=== PATIENT | male | born 1940 | race African-American/Black ===

== ENCOUNTER 2022-04-19 08:04 | Outpatient (CLI) | payer MEDICARE, BC, SELFPAY ==
--- NOTE | ~2022-04-19 | PE_ITS ---
EXAMINATION: PET skull to mid thigh DATE: 04/19/2022 10:04 INDICATION: Lung nodule TECHNIQUE: Blood glucose level was 87 mg/dL. 9.155 mCi of 18-fluorodeoxyglucose (18-FDG) was administ ered i.v. Low dose computed tomography (CT) images were acquired from the base of the brain to the pr oximal thighs for attenuation correction and anatomic localization. Positron emission tomography (PET ) images were acquired in the same distribution beginning 56 minutes after injection. Images includin g fused PET/CT images were reconstructed in axial, coronal, and sagittal planes. Automated exposure c ontrol technique was employed. The dose-length product was 396.27mGy-cm. COMPARISON: None FINDINGS: Head/neck: There is symmetric increased activity in the oral cavity, palatine and lingual tonsils, parotid gland s, laryngeal muscles and ocular muscles without CT correlate, likely physiologic. Asymmetric mild inc reased uptake without radiologic correlate at the left longus capitis muscle which is likely physiolo gic. No pathologically enlarged cervical lymphadenopathy or suspicious foci of increased FDG uptake i n the visualized head or neck. Chest: Moderate emphysema. Mild discoid atelectasis in the right lower lobe. 4 mm nodule at the right apex a nd 2 mm right upper lobe nodule along the major fissure without evident associated FDG uptake. There is a small focus of minimal FDG uptake with maximal SUV of 1.8 associated with and ill-defined approx imately 9 x 8 mm opacity in the right middle lobe along the major fissure. Evaluation of the appearan ce in size of the lesion on CT is limited by respiratory motion artifact. No more discrete nodules we re more suspicious FDG avid lesions or pulmonary lesions. Heart size is normal. Atherosclerotic coron pipo artery calcification. No pericardial effusion. Thoracic aorta is normal in caliber. No pathologic ally enlarged or abnormally FDG avid thoracic lymphadenopathy. Abdomen/pelvis/proximal thighs: Physiologic renal accumulation and excretion of FDG activity in the kidneys, bladder and along portio ns of ureters. 5.4 cm exophytic cyst at the lateral left kidney. Normal degree and heterogenous patte rn of increased uptake throughout the liver without radiologic correlate or dominant FDG avid lesion. The gallbladder, pancreas, spleen and bilateral adrenal glands are normal. Mild uptake scattered thr oughout the bowels without radiologic correlate, also likely physiologic. No other abnormal foci of i ncreased FDG uptake or pathologically enlarged lymphadenopathy in the abdomen, pelvis or proximal thi ghs. Musculoskeletal: L4 hemangioma with thickened vertical trabecula and without abnormal FDG uptake. No suspicious lytic, blastic or FDG avid bone lesions. IMPRESSION: 1. Negligible FDG activity associated with an ill-defined 9 x 8 mm opacity in the right middle lobe a long the major fissure which while reassuring does not absolutely exclude a slowly growing malignancy such as bronchoalveolar carcinoma. CT assessment on the current study is limited by motion artifact. Follow-up recommendation should be based upon. Appearance/measurements on prior CT imaging utilizing either Fleischner or lung RADS criteria. 2. No other lesions suspicious for primary malignancy or metastatic disease. Reviewed, dictated and finalized at location A. [employer] IMPRESSION: 1. Negligible FDG activity associated with an ill-defined 9 x 8 mm opacity in t he right middle lobe along the major fissure which while reassuring does not ab solutely exclude a slowly growing malignancy such as bronchoalveolar carcinoma. CT assessment on the current study is limited by motion artifact. Follow-up re commendation should be based upon. Appearance/measurements on prior CT imaging utilizing
[2022-04-19 08:25] LABS: Glucose Point of Care 87 mg/dl (65-105)
== END 2022-04-19 08:05 | disposition home or self-care (01) ==
PROVIDERS: PCP Internal Medicine Infectious Disease; Visit Provider Internal Medicine Infectious Disease
DX: R91.1 Solitary pulmonary nodule (principal)
CPT/HCPCS: 78815; A9552

== ENCOUNTER 2022-07-07 11:47 | Outpatient (CLI) | payer MEDICARE, BC, SELFPAY ==
--- NOTE | ~2022-07-07 | PE_ITS ---
EXAMINATION: PET skull to mid thigh DATE: 07/07/2022 14:05 INDICATION: Solitary pulmonary nodule TECHNIQUE: Blood glucose level was 88 mg/dL. 11.055 mCi of 18-fluorodeoxyglucose (18-FDG) was adminis tered i.v. Low dose computed tomography (CT) images were acquired from the base of the brain to the p roximal thighs for attenuation correction and anatomic localization. Positron emission tomography (PE T) images were acquired in the same distribution beginning 50 minutes after injection. The dose-lengt h product (DLP) was 351.56 mGy-cm. COMPARISON: 04/19/2022 FINDINGS: Head/neck: FDG uptake in optic nerves, extraocular, oral cavity, and vocal cords without suspicious C T correlate is likely physiologic. There are no pathologically enlarged cervical lymph nodes. Chest: No abnormal FDG uptake is identified. The previously described nodular opacity of the right mi ddle lobe has resolved, consistent with resolved infection/inflammation. There is moderate emphysema. No suspicious pulmonary nodules are identified. No pleural effusion or pneumothorax. No pathological ly enlarged thoracic lymph nodes are identified. The heart size is normal. There is mild atelectasis. Calcified coronary artery atherosclerosis is noted. Abdomen/pelvis/proximal thighs: Physiologic FDG activity is present in the bowel and urinary tract. N o abnormal FDG uptake is identified. The liver, spleen, pancreas, gallbladder, and adrenal glands are normal. There is a 4.9 cm exophytic cyst of the left kidney. The right kidney is unremarkable. No pa thologically enlarged abdominal or pelvic lymph nodes are identified. No free intraperitoneal gas or evidence of bowel obstruction. There is calcified atherosclerosis of the aorta and many of the other arteries. Musculoskeletal: No abnormal FDG uptake is identified. IMPRESSION: 1. Interval resolution of the previously described right middle lobe nodule, consistent with infectio n/inflammation. No suspicious pulmonary nodules identified. Reviewed, dictated and finalized at location L. PPER IMPRESSION: 1. Interval resolution of the previously described right middle lobe nodule, co nsistent with infection/inflammation. No suspicious pulmonary nodules identifie d.
[2022-07-07 12:37] LABS: Glucose Point of Care 88 mg/dl (65-105)
== END 2022-07-07 11:48 | disposition home or self-care (01) ==
LOC: ANHIMG 11:55
PROVIDERS: PCP Internal Medicine Infectious Disease; Visit Provider Internal Medicine Pulmonary Disease
DX: R91.1 Solitary pulmonary nodule (principal)
CPT/HCPCS: 78815; A9552

== ENCOUNTER 2022-11-08 10:39 | Outpatient (CLI) | payer MEDICARE, BC, SELFPAY ==
--- NOTE | ~2022-11-08 | US_ITS ---
US retroperitoneal comp 11/08/2022 11:29 Procedure: Realtime transabdominal ultrasound of the kidneys and bladder. Indication: Chronic kidney disease stage III Comparison: No prior studies for comparison. Findings: Renal echotexture is normal bilaterally without hydronephrosis, contour deforming mass or r enal calculus. The right kidney measures 9.4 cm and left kidney measures 11.3 cm. There are left jovany l cysts, largest measuring 5.5 cm. Bladder within normal limits. Impression: 1: Left renal cysts, largest measuring 5.5 cm. Reviewed, dictated and finalized at location L. Impression: 1: Left renal cysts, largest measuring 5.5 cm.
== END 2022-11-08 10:40 | disposition home or self-care (01) ==
PROVIDERS: PCP Internal Medicine Infectious Disease; Visit Provider Internal Medicine Nephrology
DX: I12.9 Hypertensive chronic kidney disease with stage 1 through stage 4 chronic kidney disease, or unspecified chronic kidney disease (principal); N18.2 Chronic kidney disease, stage 2 (mild); E87.1 Hypo-osmolality and hyponatremia; D64.9 Anemia, unspecified; N28.1 Cyst of kidney, acquired
CPT/HCPCS: 76770

== ENCOUNTER 2025-05-24 14:12 | Emergency (ER) | payer MEDICARE, BC, SELFPAY ==
[2025-05-24] VITALS (15 sets, daily range): BP systolic 126–139; BP diastolic 74–83; PULSE 79–94; RESP 18–20; TEMP 36.8; O2SAT 92–100
--- NOTE | ~2025-05-24 | XR_ITS ---
EXAMINATION: XR chest 2V DATE: 05/24/2025 17:29 INDICATION: Cough, shortness of breath. TECHNIQUE: Frontal and lateral views of the chest were obtained. COMPARISON: PET/CT dated 07/07/2022. FINDINGS: Heart size is normal. Atherosclerotic aorta. Emphysematous lungs. Significant atelectasis of left lower lobe. No effusion. IMPRESSION: 1. Emphysematous lungs with atelectasis of left lower lobe. Atherosclerotic aorta. Reviewed, dictated and finalized at location T. [employer] IMPRESSION: 1. Emphysematous lungs with atelectasis of left lower lobe. Atherosclerotic aor ta.
--- NOTE | ~2025-05-24 | CT_ITS ---
EXAMINATION: CTA chest PE protocol DATE: 05/24/2025 18:23 INDICATION: Shortness of breath. COPD. TECHNIQUE: Computed tomography angiography (CTA) of the chest was performed with 100 mL Omnipaque-350 intravenous contrast timed to evaluate the pulmonary arteries. Coronal maximum intensity projection 3D-reconstructions were created by the technologist. Automated exposure control and iterative reconstruction technique were employed. The dose-length product was 189.27 mGy-cm. COMPARISON: Chest x-ray dated 05/24/2025. FINDINGS: No evidence of pulmonary emboli. No evidence of thoracic aortic dissection. Severe emphysematous changes of lungs. Consolidation of lower lobes on both sides suggestive of pneumonia. No evidence of effusion. IMPRESSION: 1. No evidence of pulmonary emboli. Thoracic aorta shows no evidence of dissection. 2. Severe emphysematous changes of lungs. Consolidation of both lower lobes posterior basal segment suggestive of bilateral pneumonia. Reviewed, dictated and finalized at location T. [employer]OV[employer] IMPRESSION: 1. No evidence of pulmonary emboli. Thoracic aorta shows no evidence of dissect ion. 2. Severe emphysematous changes of lungs. Consolidation of both lower lobes pos terior basal segment suggestive of bilateral pneumonia.
--- NOTE | 2025-05-24 16:20 | ECG_ITS ---
Test Date: 2025-05-24 17:44:41 Measurements Intervals [place] Rate: 94 P: 77 MS: 152 QRS: 71 QRSD: 86 T: 76 QT: 365 QTc: 458 Interpretive Statements SINUS RHYTHM BORDERLINE T WAVE ABNORMALITY- ANT/HIGH LAT LEADS BASELINE ARTIFACT- I, II, III, AVR, AVL, AVF, V1, V4-V5 BORDERLINE ECG No previous ECG available for comparison Electronically Signed On 05-24-2025 21:04:00 ETYMOLOGY PROFESSOR by Danilo Shultz D.O.
--- NOTE | 2025-05-24 16:21 | ED_ITS ---
HPI - SOB/Dyspnea General Chief Complaint: Shortness of Breath/Dyspnea Stated Complaint: sob Time Seen by Provider: 05/24/25 15:54 History of Present Illness HPI Narrative: Patient is an 84-year-old male who presents to the ER with shortness of breath and cough. He reports his symptoms have been going on for approximately 4-5 days. Patient denies any recent sick contacts, recent fevers, or chest pain. He endorses a history of COPD but is not on oxygen at baseline. Patient reports he has been using his nebulizer machine at home, which has helped ?some. He also endorses a history of high blood pressure and chronic kidney disease. Patient reports he is not on blood thinners and denies any lower extremity edema. Related Data Allergies Allergy/AdvReac Type Severity Reaction Status Date / Time Penicillins Allergy Unknown Verified 05/24/25 15:09 Review of Systems 2 Review of Systems: All systems reviewed & are unremarkable except as noted in HPI and below Exam 2 Narrative: GENERAL: Well appearing, cachectic, non-toxic, in no acute distress. HEAD: Normocephalic, atraumatic. NECK: Supple. No adenopathy, no masses. RESPIRATORY: Airway patent, respirations nonlabored. Positive upper bilateral lobe wheezing, right lower lobe rhonchi, No tachypnea, no retractions CARDIOVASCULAR: Regular rate and rhythm without murmurs, rubs, or gallops. Peripheral pulses 2+ and equal bilaterally. No bilateral lower extremity edema ABDOMINAL: Soft, nontender, nondistended, no hepatosplenomegaly. Normoactive BS. MUSCULOSKELETAL: Moves all extremities. Strength/ROM intact without gross deformities. SKIN: Warm, dry, normal color. No rashes. NEURO: A&O X3. Speech clear. Cranial nerves II-XII intact. No ataxic movements. PSYCHIATRIC: Appropriate mood and affect. Normal interaction. Course Vital Signs Vital signs: Vital Signs Temperature 36.8 C 05/24/25 14:14 Pulse Rate 94 05/24/25 14:14 Respiratory Rate 19 05/24/25 14:14 Blood Pressure 139/83 05/24/25 14:14 Pulse Oximetry 93 05/24/25 14:14 Oxygen Delivery Room Air 05/24/25 14:14 Temperature 36.8 C 05/24/25 14:14 Pulse Rate 82 12/27/25 17:38 Respiratory Rate 19 05/24/25 17:38 Blood Pressure 126/78 05/24/25 17:38 Pulse Oximetry 92 05/24/25 18:23 Oxygen Delivery Room Air 05/24/25 15:06 MDM MDM Narrative Medical decision making narrative: Patient is an 84-year-old male who presents to the ER with shortness of breath and cough. He reports his symptoms have been going on for approximately 4-5 days. Patient denies any recent sick contacts, recent fevers, or chest pain. He endorses a history of COPD but is not on oxygen at baseline. Patient reports he has been using his nebulizer machine at home, which has helped ?some. He also endorses a history of high blood pressure and chronic kidney disease. Patient reports he is not on blood thinners and denies any lower extremity edema. Labs Ordered: CBC, CMP, proBNP, D-dimer, PTT, INR, troponin, COVID/flu/RSV, magnesium Imaging Ordered: Chest x-ray Medications Ordered: DuoNeb Results: Patient's CT scan indicates 1. No evidence of pulmonary emboli. Thoracic aorta shows no evidence of dissection. 2. Severe emphysematous changes of lungs. Consolidation of both lower lobes posterior basal segment suggestive of bilateral pneumonia. His respiratory panel is positive for influenza A. Diagnosis: Bilateral pneumonia, influenza a, upper respiratory infection Risks: CURB-65 score: moderate risk CURB-65 Score for Pneumonia Severity from [facility] on 05/24/2025 All calculations should be rechecked by clinician prior to use RESULT SUMMARY: 2 points Moderate risk group: 6.8% 30-day mortality. Consider inpatient treatment or outpatient with close followup. INPUTS: Confusion ?> 0 = No BUN >19 mg/dL (>7 mmol/L urea) ?> 1 = Yes Respiratory Rate >=0 ?> 0 = No Systolic BP <90 mmHg or Diastolic BP <=0 mmHg ?> 0 = No Age >=5 ?> 1 = Yes Patient Education/Shared MDM: Results of lab work and imaging shared with patient and his family. His vital signs have remained stable during his ER visit. Pt has not required additional oxygen, nor has he had any tachypnea or fevers. He endorses improvement of symptoms following medication administration. Patient strongly advised to maintain hydration status upon discharge and follow-up with his PCP in the next 2-3 days for re-evaluation. He will be discharged home with a prescription for Augmentin, azithromycin, and Tessalon Perles. Patient reports he already had an albuterol inhaler at home. Strict return precautions provided. Patient verbalized understanding and is in agreement with plan. Vital signs stable at time of discharge. All questions answered. Differential Diagnosis Differential Diagnosis: COPD exacerbation, pneumonia, influenza, COVID, RSV, PE Lab Data MDM Lab Attestation statement: I personally reviewed the patient's lab results. 05/24/25 16:55 05/24/25 16:55 Labs: Lab Results 05/24/25 05/24/25 Range/Units 16:33 16:55 WBC 5.5 (4.5-10.0) K/mm3 RBC 4.36 L (4.6-6.20) M/mm3 Hgb 12.0 L (14.0-18.0) g/dL Hct 36.9 L (42.0-52.0) % MCV 84.6 (80-100) fl MCH 27.5 (26-34) pg MCHC 32.5 (32-36) g/dl RDW 14.5 (11.5-14.5) % Plt Count 142 L (150-375) k/mm3 MPV 9.9 (7.4-10.4) fl Immature Gran % (Auto) 0.5 (0-0.5) % Neut % (Auto) 68.2 (45.5-73.1) % Lymph % (Auto) 19.7 (18.3-44.2) % [place] % (Auto) 11.2 H (2.6-8.5) % Eos % (Auto) 0.2 (0-4.4) % Baso % (Auto) 0.2 (0.2-1.2) % Lymph # (Auto) 1.08 (0.9-3.2) K/mm3 [place] # (Auto) 0.6 (0.1-0.6) K/mm3 Eos # (Auto) 0.0 (0-0.3) K/mm3 Baso # (Auto) 0.0 (0.0-0.1) K/mm3 Abs Immat Gran (auto) 0.03 (0.00-0.031) K/mm3 Absolute Neuts (auto) 3.7 (1.3-6.7) K/mm3 Absolute Nucleated RBC 0.000 (0.0-0.012) K/mm3 Nucleated RBC % 0.0 (0.0-0.2) % PT 14.8 H (11.1-14.7) Seconds INR 1.2 APTT 41.1 H (22.3-36.8) Seconds D-Dimer 1.20 H (<0.48) ug/mL Sodium 133 L (137-145) mmol/L Potassium 3.8 (3.4-5.0) mmol/L Chloride 102 (98-107) mmol/L Carbon Dioxide 28 (22-30) mmol/L Anion Gap 3 L (4-12) mmol/L BUN 25 H (9-20) mg/dL Creatinine 0.88 (0.7-1.3) mg/dL Estim Creat Clear Calc 42 ml/min Estimated GFR > 60 (59 - ) Glucose 105 (65-110) mg/dL Lactic Acid 1.4 (0.7-2.0) mmol/L Calcium 9.0 (8.4-10.2) mg/dL Magnesium 1.8 (1.6-2.3) mg/dL Total Bilirubin 0.6 (0.2-1.3) mg/dL AST 88 H (17-59) U/L ALT 50 (6-50) U/L Alkaline Phosphatase 98 (38-126) U/L Troponin I < 0.012 (0.000-0.034) ng/mL NT-Pro-B Natriuret Pep 729 H (19.9-100) pg/mL Total Protein 7.0 (6.3-8.2) g/dL Albumin 3.5 (3.5-5.1) g/dL Influenza A (RT-PCR) Positive A (Negative) Influenza B (RT-PCR) Negative (Negative) RSV (RT-PCR) Negative (Negative) SARS-CoV-2 RNA (RT-PCR) Negative (Negative) Imaging Data Attestation: I personally reviewed and interpreted this imaging study as follows: Radiologist's impression: ITS Impressions Chest X-Ray 05/24/25 17:31 IMPRESSION: 1. Emphysematous lungs with atelectasis of left lower lobe. Atherosclerotic aorta. Chest CTA 05/24/25 18:24 IMPRESSION: 1. No evidence of pulmonary emboli. Thoracic aorta shows no evidence of dissection. 2. Severe emphysematous changes of lungs. Consolidation of both lower lobes posterior basal segment suggestive of bilateral pneumonia. Discharge Plan Discharge Clinical Impression: Community acquired pneumonia, Upper respiratory infection, History of COPD Patient Disposition: Home Condition: Stable Instructions: Antibiotic Form, Community Acquired Pneumonia (ED) Additional Instructions: Please return to the ER with any worsening symptoms, including increased work of breathing, fevers, chest pain, or sudden onset shortness of breath. Follow-up with primary care provider as soon as possible for re-evaluation. Take all medications as prescribed, including regularly scheduled medications. Please complete your full dose of antibiotics. Use your albuterol at home as prescribed. You may take Tessalon Perles as needed to help reduce your cough. Patient Language: Syriac Prescriptions: New azithromycin 250 mg tablet See Rx Instructions .ROUTE .COMPLEX Qty: 6 0RF Rx Instructions: For 250 mg dose pack: take 500 mg today (day 1), then 250 mg for 4 days (days 2-5) benzonatate 100 mg capsule 100 mg PO TID Qty: 15 0RF amoxicillin-pot clavulanate 875-125 mg tablet 1 tablet PO Q12H Qty: 20 0RF Follow-up/Referrals: Lisa,Elham Beltran [Primary Care Provider] Time of Disposition: 18:53
[2025-05-24] MEDS: IPRATROPIUM 0.5 MG/ALBUTEROL SULFATE 2.5 MG (BASE) AMPUL.NEB 3 ML INHALATION ×3 (16:29)
[2025-05-24 17:01] LABS: Hematocrit 36.9 % (42.0-52.0); Hemoglobin 12.0 g/dL (14.0-18.0); Immature Granulocyte Percent A 0.5 % (0-0.5); Lymphocytes Absolute Auto 1.08 K/mm3 (0.9-3.2); Mean Corpuscular HGB Conc 32.5 g/dl (32-36); Mean Corpuscular Hemoglobin 27.5 pg (26-34); Mean Corpuscular Volume 84.6 fl (80-100); Nucleated Red Blood Cells Absolute Auto 0.000 K/mm3 (0.0-0.012); Nucleated Red Blood Cells Perc 0.0 % (0.0-0.2); Platelet Count Result 142 k/mm3 (150-375); Red Blood Count 4.36 M/mm3 (4.6-6.20); White Blood Count 5.5 K/mm3 (4.5-10.0)
[2025-05-24 17:12] LABS: INR 1.2; Prothrombin Time 14.8 Seconds (11.1-14.7)
[2025-05-24 17:13] LABS: Partial Thromboplastin Time 41.1 Seconds (22.3-36.8)
[2025-05-24 17:14] LABS: Influenza A QL RT-PCR Positive (Negative); Influenza B QL RT-PCR Negative (Negative); RSV RNA, RT-PCR Negative (Negative); SARS-CoV-2 RNA PCR Negative (Negative)
[2025-05-24 17:16] LABS: Alanine Aminotransferase 50 U/L (6-50); Albumin Level 3.5 g/dL (3.5-5.1); Alkaline Phosphatase 98 U/L (38-126); Anion Gap 3 mmol/L (4-12); Aspartate Amino Transferase 88 U/L (17-59); Bilirubin,Total 0.6 mg/dL (0.2-1.3); Blood Urea Nitrogen 25 mg/dL (9-20); Calcium 9.0 mg/dL (8.4-10.2); Carbon Dioxide 28 mmol/L (22-30); Chloride 102 mmol/L (98-107); Estimated CRCL calculation 42 ml/min; Estimated Glomerular Filt Rate > 60; Glucose 105 mg/dL (65-110); Magnesium 1.8 mg/dL (1.6-2.3); Potassium 3.8 mmol/L (3.4-5.0); Sodium 133 mmol/L (137-145); Total Protein 7.0 g/dL (6.3-8.2)
[2025-05-24 17:26] LABS: NT Pro B Type Natriuretic Pept 729 pg/mL (19.9-100); Troponin I < 0.012 ng/mL (0.000-0.034)
[2025-05-24] MEDS: AZITHROMYCIN 500 MG TABLET PO (18:58)
--- NOTE | 2025-05-24 19:22 | PC.NURSE ---
This RN discharged pt out only
== END 2025-05-24 19:26 | disposition home or self-care (01) ==
PROVIDERS: Emergency Provider Registered Nurse; PCP Internal Medicine Infectious Disease
DX: J10.00 Influenza due to other identified influenza virus with unspecified type of pneumonia (principal); J44.9 Chronic obstructive pulmonary disease, unspecified; Z20.822 Contact with and (suspected) exposure to COVID-19; I12.9 Hypertensive chronic kidney disease with stage 1 through stage 4 chronic kidney disease, or unspecified chronic kidney disease; N18.9 Chronic kidney disease, unspecified; R94.31 Abnormal electrocardiogram [ECG] [EKG]
CPT/HCPCS: 36415; 71046; 71275; 80053; 83605; 83735; 83880; 84484; 85025; 85380; 85610; 85730; 87637; 93005; 94640; 96372; 99284; A9270; J2919; Q9967